=== PATIENT | male | born 1950 | race Caucasian/White ===

== ENCOUNTER 2016-09-13 07:32 | Inpatient (IN) | payer BC ==
[~2016-09-13 07:32] MED LIST: ASPIRIN325 M3 PO; ATORVASTATIN CA40 M1 PO; BYSTOLIC5 M1 PO; CALCIUM 600 +1 EA14 PO; DAILY VITAMIN1 EAC5 PO; FISH OIL 1,0001 EA10 PO; NIASPAN500 M1 PO; SYNTHROID88 MC1 PO; VITAMIN B12 PO; VITAMIN C500 M3 PO; VITAMIN D35000 UNI2 PO; VITAMIN E400 UNI4 PO
[2016-09-14 04:31] LABS: EOS % 0.2 % (0-7); HCT-HEMATOCRIT 29.2 % (36.0-53.5); HGB-HEMOGLOBIN 10.3 gm/dl (13.5-17.0); IMMATURE GRANULOCYTES ABSOLUTE 0.04 tho/cmm (0-0.03); IMMATURE GRANULOCYTES PERCENT 0.4 % (0-0.3); LYMPH % 6.7 % (20-45); LYMPH ABSOLUTE COUNT 0.7 tho/cmm (0.8-4.5); MCH (MEAN CORPUSCULAR HGB) 32.9 pg (28.0-32.0); MCHC MEAN CORPUSCULAR HGB CONC 35.3 % (32.0-36.0); MCV (MEAN CELL VOLUME) 93.3 fl (82.0-96.0); MEAN PLATELET VOLUME 9.8 cmc (9.4-12.4); MONO % 7.3 % (0-12); MONOCYTE ABSOLUTE COUNT 0.8 tho/cmm (0.0-1.2); NEUTROPHIL ABSOLUTE COUNT 9.2 tho/cmm (1.6-8.0); NEUTROPHIL-AUTOMATED 9.2 tho/cmm (1.6-8.0); NEUTROPHILS % 85.4 % (40-80); PLATELET COUNT 138 tho/cmm (150-450); RED BLOOD COUNT 3.13 mil/cmm (4.40-5.70); RED CELL DISTRIBUTION WIDTH 12.7 % (12.4-16.4); WHITE BLOOD COUNT 10.8 tho/cmm (4.0-10.0)
[2016-09-14] MEDS ORDERED: ASPIRIN81 M1 PO (10:43)
[2016-09-14] MEDS ORDERED: ULTRAM50 M1 PO (10:44)
[2016-09-14] MEDS ORDERED: TYLENOL325 M2 PO (10:45)
[2016-09-14] MEDS ORDERED: MOBIC7.5 M2 PO ×2 (11:16→11:18)
[2016-09-14] MEDS ORDERED: ROXICODONE5 M2 PO (11:21)
== END 2016-09-14 14:15 | DRG 470 ==
LOC: SHSB 07:32 → ORE 10:16 → PACU 11:45 → 5EA 12:55
PROVIDERS: ADMIT Orthopaedic Surgery Foot and Ankle Surgery
PROC: 0SRB04A Replacement of Left Hip Joint with Ceramic on Polyethylene Synthetic Substitute, Uncemented, Open Approach (ICD-10-PCS; principal; 2016-09-13)
DX: M16.12 Unilateral primary osteoarthritis, left hip (principal); E66.9 Obesity, unspecified; I10 Essential (primary) hypertension; E78.00 Pure hypercholesterolemia, unspecified; E03.9 Hypothyroidism, unspecified; Z79.82 Long term (current) use of aspirin; Z68.31 Body mass index [BMI] 31.0-31.9, adult; E78.5 Hyperlipidemia, unspecified
CPT/HCPCS: C1776; J0171; J0690; J1885; J2270; J2795; J7050